=== PATIENT | female | born 1980 | race Two or more races ===

== ENCOUNTER 2024-10-06 08:18 | Inpatient (IN) | payer MEDICAID, OTHER ==
[~2024-10-06] VITALS: Ht 157.5 cm; Wt 72.7 kg
--- NOTE | 2024-10-06 09:15 | ED.PDOC ---
GI ASSESSMENT HPI Comments 44 year old female SHIKHA presents to the ED with chief complaint of abdominal pain. Patient reports that she had started to experience sharp LUQ abdominal pain during work this morning, going home early. Patient relays that her pain worsened at home and then was accompanied by associated nausea, dizziness, and blurred vision. EMS relays that the patient's BP was noted to be in the 170s systolically, despite taking Propranolol this morning. Patient notes her LMP was on 10/01. Patient denies any vomiting, diarrhea, chest pain, SOB, fever, chills, dysuria, or hematuria. Chief Complaint: Abdominal Pain Time Seen by MD: 09:10 Primary Care Provider: UNKNOWN Reviewed Notes: Nurses Notes, Taxation Consultant Notes, Medications, Allergies Allergies: Coded Allergies: NO KNOWN ALLERGIES (Unverified , 10/06/24) Information Source: Patient, Emergency Med Personnel Mode of Arrival: EMS Timing: Hours Duration: Since onset Prehospital treatment: 12 Lead EKG Quality: Cramping, Sharp Vomitus: None Stool: Normal Severity: Moderate Recent: None Recent Hx of: None Pain Location: Epigastric, LUQ Modifying Factors: Nothing Associated sign and symptoms: Nausea, Abdominal Pain Past Medical History PAST MEDICAL HISTORY: Anxiety, Gallstones, HTN Surgical History: Denies all surgeries CLIENT ACCOUNT REPRESENTATIVE History: Denies all CLIENT ACCOUNT REPRESENTATIVE Hx Family History Family History: Reviewed,noncontributory to illness Social History Smoker: Non-Smoker Alcohol: Denies ETOH Use Drugs: Denies Drug Use Lives In: Home Constitutional: denies: chills, diaphoresis, fatigue, fever, malaise, sweats, weakness, others EENTM: reports: blurred vision; denies: double vision, ear bleeding, ear discharge, ear drainage, ear pain, ear ringing, eye pain, eye redness, hearing loss, mouth pain, mouth swelling, nasal discharge, nose bleeding, nose congestion, nose pain, photophobia, tearing, throat pain, throat swelling, voice changes, others Respiratory: denies: cough, hemoptysis, orthopnea, SOB at rest, shortness of breath, SOB with excertion, stridor, wheezing, others Cardiovascular: denies: chest pain, dizzy spells, diaphoresis, Dyspnea on exertion, edema, irregular heart beat, left arm pain, lightheadedness, palp itations, PND, syncope, others Gastrointestinal: reports: abdominal pain, nausea; denies: abdomen distended, blood streaked bowels, constipated, diarrhea, dysphagia, difficulty swallowing, hematemesis, melena, poor appetite, poor fluid intake, rectal bleeding, rectal pain, vomiting, others Genitourinary: denies: abnormal vagina bleeding, burning, dyspareunia, dysuria, flank pain, frequency, hematuria, incontinence, pain, , vagina discharge, urgency, others Neurological: reports: dizziness; denies: fainting, headache, left sided numbness, left sided weakness, numbness, paresthesia, pre-existing deficit, right sided numbness, right sided weakness, seizure, speech problems, tingling, tremors, weakness, others Musculoskeletal: denies: back pain, gout, joint pain, joint swelling, muscle pain, muscle stiffness, neck pain, others Integumetry: denies: bruises, change in color, change in hair/nails, dryness, laceration, lesions, lumps, rash, wounds, others Allergic/Immunocompromised: denies: Difficulty Healing, Frequent Infections, Hives, Itching, others Hematologic/Lymphatic: denies: anemia, blood clots, easy bleeding, easy bruising, swollen glands, others Endocrine: denies: excessive hunger, excessive sweating, excessive thirst, excessive urination, flushing, intolerance to cold, intolerance to heat, unexplained weight gain, unexplained weight loss, others Psychiatric: denies: anxiety, bipolar disorder, depression, hopeless, panic disorder, schizophrenia, sleepless, suicidal, others All Other Systems: Reviewed and Negative Physical Exam General Appearance: No Apparent Distress, Normal HEENT: Normal ENT Inspection, Pharynx Normal, TMs Normal Neck: Full Range of Motion, Non-Tender, Normal, Normal Inspection Respiratory: Chest Non-Tender, Lungs Clear, No Accessory Muscle Use, No Respiratory Distress, Normal Breath Sounds Cardiovascular: No Edema, No JVD, No Murmur, No Gallop, Normal Peripheral Pulses, Regular Rate/Rhythm Breast Exam: Deferred Gastrointestinal: No Organomegaly, No Pulsatile Mass, Normal Bowel Sounds, Soft, Tenderness (Epigastric/LUQ tenderness to palpation) Genitalia: Deferred Pelvic: Deferred Rectal: Deferred Extremities: No calf tenderness, Normal capillary refill, Normal inspection, Normal range of motion, Non-tender, No pedal edema Musculoskeletal : Apperance: Normal Neurologic: Alert, 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 Was a procedure done?: No GI differential Dx Differential Diagnosis: Cholecystitis, Gastritis/PUD, Gastroenteritis, Pancreatitis, Dehydration, Electrolyte Imbalance, Food Poisoning, Bacterial, Viral X-Ray, Labs, Meds, VS Vital Signs Date Time Temp Pulse Resp B/P (MAP) Pulse Ox O2 Delivery O2 Flow Rate FiO2 10/06/24 13:49 47 17 159/79 10/06/24 13:45 98.0 47 17 159/79 (105) 94 98.0 10/06/24 12:47 46 16 177/75 10/06/24 09:20 97.6 46 16 165/81 (109) 97 97.6 10/06/24 09:20 46 16 97 Room Air* 0 21 10/06/24 09:15 50 10/06/24 08:30 50 10/06/24 08:29 97.7 50 15 177/78 (111) 95 97.7 Lab Test 10/06/24 09:56 10/06/24 09:22 Range/Units White Blood Count 9.7 4.4-10.8 10^3/uL Red Blood Count 4.75 4.0-5.20 10^6/uL Hemoglobin 11.3 L 12.2-16.2 g/dL Hematocrit 35.5 L 36.0-46.0 % Mean Corpuscular Volume 74.7 L 80.0-100.0 fL Mean Corpuscular Hemoglobin 23.7 L 28.0-32.0 pg Mean Corpuscular Hemoglobin Concent 31.8 L 32.0-36.0 g/dL Red Cell Distribution Width 18.7 H 11.8-14.3 % Platelet Count 549 H 140-450 10^3/uL Mean Platelet Volume 7.5 6.9-10.8 fL Neutrophils (%) (Auto) 70.1 37.0-80.0 % Lymphocytes (%) (Auto) 20.7 10.0-50.0 % Monocytes (%) (Auto) 5.2 0.0-12.0 % Eosinophils (%) (Auto) 3.0 0.0-7.0 % Basophils (%) (Auto) 1.0 0.0-2.0 % Neutrophils # (Auto) 6.8 1.6-8.6 10 ^3/uL Lymphocytes # (Auto) 2.0 0.4-5.4 10 ^3/uL Monocytes # (Auto) 0.5 0-1.3 10 ^3/uL Eosinophils # (Auto) 0.3 0-0.8 10 ^3/uL Basophils # (Auto) 0.1 0-0.2 10 ^3/uL Nucleated Red Blood Cells 0.1 % Sodium Level 139 136-145 mmol/L Potassium Level 4.0 3.5-5.1 mmol/L Chloride Level 103 98-107 mmol/L Carbon Dioxide Level 26 20-31 mmol/L Anion Gap 10 5-15 Blood Urea Nitrogen 8 L 9-23 mg/dL Creatinine 0.63 0.550-1.02 mg/dL Glomerular Filtration Rate Calc 111 >90 mL/min BUN/Creatinine Ratio 12.7 10.0-20.0 Serum Glucose 103 74-106 mg/dL Calcium Level 10.2 8.7-10.4 mg/dL Total Bilirubin 0.4 0.2-1.0 mg/dL Aspartate Amino Transferase (AST) 13 13-40 U/L Alanine Aminotransferase (ALT) < 9 7-40 U/L Alkaline Phosphatase 48 46-116 U/L Total Protein 7.9 5.7-8.2 g/dL Albumin 4.9 H 3.2-4.8 g/dL Lipase 50 12-53 U/L Thyroid Stimulating Hormone (TSH) 1.51 0.55-4.78 uIU/mL Urine Color Colorless Yellow Urine Clarity Clear Clear Urine pH 6.5 5.0-9.0 Urine Specific [place] 1.005 1.001-1.035 Urine Protein Negative Negative Urine Ketones Negative Negative Urine Blood Negative Negative /uL Urine Nitrite Negative Negative Urine Bilirubin Negative Negative Urine Urobilinogen Normal Negative mg/dL Urine Leukocyte Esterase Negative Negative /uL Urine RBC <1 0 - 4 /hpf Urine Microscopic WBC < 1 0-5 /HPF Urine Squamous Epithelial Cells Few <5 /hpf Urine Bacteria None seen None Seen /hpf Urine Glucose Normal Normal mg/dL Urine Test Negative Negative Current Medications Medications (Trade) Dose Ordered Sig/Aleena Route Start Time Stop Time Status Last Admin Al Hydrox/Mg Hydrox/Simethicone (Maalox Plus) 30 ml ONCE ONCE PO 10/06/24 09:45 10/06/24 09:46 DC 10/06/24 10:09 Belladonna Alkaloids/ Phenobarbital ( Elixir) 5 ml ONCE ONCE PO 10/06/24 09:45 10/06/24 09:46 DC 10/06/24 10:10 Lidocaine HCl (Xylocaine 2% Viscous) 10 ml ONCE ONCE PO 10/06/24 09:45 10/06/24 09:46 DC 10/06/24 10:10 Ondansetron HCl (Zofran) 4 mg ONCE ONCE IV 10/06/24 12:00 10/06/24 12:01 DC 10/06/24 12:46 Hydromorphone HCl (Dilaudid Injection) 1 mg ONCE ONCE IV 10/06/24 12:45 10/06/24 12:46 DC 10/06/24 12:47 44-year-old female presents mid abdomen and upper quadrants. Patient was given a GI cocktail without improvement. CT abdomen and pelvis was ordered which does demonstrate a small bowel obstruction. Also evidence of cholelithiasis patient has been given Dilaudid and Zofran in ER as well as IV fluids. At this time hospitalist team has been consulted for admission. cbc and cmp have been done which are within normal limits Time of 1ST Reevaluation: 10:10 Reevaluation 1ST: Improved Patient Education/Counseling: Diagnosis, Treatment Family Education/Counseling: No Family Present Departure 1 Departure Time of Disposition: 12:00 Impression: Primary Impression: Small bowel obstruction Additional Impressions: Cholelithiasis Qualified Codes: K80.20 - Calculus of gallbladder without cholecystitis without obstruction Adnexal cyst Disposition: HOME / SELF CARE / HOMELESS Condition: Guarded Discharged With: Self Critical Care Note Critical Care Time?: No Stability Stability form required: No Heart Score Heart Score: Heart Score Response (Comments) Value History N/A 0 EKG N/A 0 Age N/A 0 Risk Factors N/A 0 Troponin N/A 0 Total 0 I personally scribed for PATIENCE ELLIOTT MD ([email or web address]) on 10/06/24 at 09:15. Electronically submitted by Damon Donaldson ([email or web address]). I personally scribed for PATIENCE ELLIOTT MD ([email or web address]) on 10/06/24 at 11:46. Electronically submitted by Damon Donaldson ([email or web address]). PATIENCE ELLIOTT MD Oct 06, 2024 09:15
[2024-10-06 09:20] VITALS: PULSE 46; RESP 16; O2SAT 97
[2024-10-06 09:54] LABS: Urine Bacteria None Seen /hpf (None Seen)
[2024-10-06 09:58] LABS: Urine Blood Negative /uL (Negative); Urine Clarity Clear (Clear); Urine Color Colorless (Yellow); Urine Protein, UAD Negative (Negative); Urine Specific Gravity 1.005 (1.001-1.035); Urine Squamous Epithelial Cell FEW /hpf (<5); Urine Urobilinogen Normal (Negative); Urine WBC < 1 /HPF (0-5); Urine pH 6.5 (5.0-9.0)
[2024-10-06 10:05] LABS: Basophils # (auto) 0.1 10 ^3/uL (0-0.2); Eosinophils # (auto) 0.3 10 ^3/uL (0-0.8); Hematocrit 35.5 % (36.0-46.0); Hemoglobin 11.3 g/dL (12.2-16.2); Lymphocytes % (auto) 20.7 % (10.0-50.0); Mean Corpuscular Hemoglobin 23.7 pg (28.0-32.0); Mean Corpuscular Hgb Conc. 31.8 g/dL (32.0-36.0); Mean Corpuscular Volume 74.7 fL (80.0-100.0); Monocytes # (auto) 0.5 10 ^3/uL (0-1.3); Monocytes % (auto) 5.2 % (0.0-12.0); Neutrophils # (auto) 6.8 10 ^3/uL (1.6-8.6); Neutrophils % (auto) 70.1 % (37.0-80.0); Nucleated Red Blood Cells % 0.1 %; Platelet Count (auto) 549 10^3/uL (140-450); Red Blood Cells 4.75 10^6/uL (4.0-5.20); Red Cell Distribution Width 18.7 % (11.8-14.3); White Blood Cell 9.7 10^3/uL (4.4-10.8)
[2024-10-06] MEDS: MAALOX PLUS or MAALOX 30 ML PO ONE (10:09)
[2024-10-06] MEDS: DONNATAL 5ml ORAL Elix (BELLADONNA ALK-PHENOBARB) PO ONE (10:10)
[2024-10-06] MEDS: LIDOCAINE VISCOUS 2% 15ML UD PO ONE (10:10)
[2024-10-06 10:18] LABS: Alkaline Phosphatase 48 U/L (46-116); Anion Gap 10 (5-15); Aspartate Aminotransferase 13 U/L (13-40); BUN/Creatinine Ratio 12.7 (10.0-20.0); Bilirubin, Total 0.4 mg/dL (0.2-1.0); Calcium 10.2 mg/dL (8.7-10.4); Carbon Dioxide 26 mmol/L (20-31); Chloride 103 mmol/L (98-107); Glucose 103 mg/dL (74-106); Sodium 139 mmol/L (136-145); Total Protein 7.9 g/dL (5.7-8.2)
[2024-10-06 10:20] LABS: Alanine Aminotransferase < 9 U/L (7-40); Albumin 4.9 g/dL (3.2-4.8); Blood Urea Nitrogen 8 mg/dL (9-23)
--- NOTE | 2024-10-06 11:07 | DVH ---
CLINICAL INFORMATION: Abdominal pain. TECHNIQUE: Axial CT images of the abdomen and pelvis were obtained without IV contrast. Coronal and s agittal reformatted images were obtained, reviewed, and stored. Evaluation of the parenchymal organs is limited without IV contrast. Evaluation of the bowel and mesentery is limited without oral contras t. All CT scans at this medical facility are performed using dose modulation techniques as appropriat e to a performed exam including the following: Automated exposure control was utilized; adjustment of the MA and/or KV according to patient size; and use of iterative reconstruction technique. CTDIvol = 10.52 mGy DLP = 541.26 mGy-cm COMPARISON: None FINDINGS: Lung bases: Lung bases are clear. Liver: Grossly unremarkable in its noncontrast enhanced appearance. No abnormal density or focal lesi on identified. Biliary: Numerous small calcified gallstones in the gallbladder. Spleen: Unremarkable. Pancreas: Grossly unremarkable in its noncontrast enhanced appearance. Adrenal glands: Unremarkable. No mass. Kidneys: No hydronephrosis. No renal or ureteral calculi. Aorta/Vascular: Moderate atherosclerotic calcification. No abdominal aortic aneurysm. Retroperitoneum: No mass or lymphadenopathy. Bowel/mesentery: Dilated fluid-filled proximal to mid small bowel loops with nondilated distal small bowel loops suggesting small bowel obstruction suspected transition point in the right hemiabdomen. A ppendix is visualized and appears unremarkable. Underdistended colon due to the small bowel obstruct ion. Pelvic organs: Uterus is anteverted. Tubal occlusion devices are seen in the uterus. There is a cysti c structure in the right adnexal region measuring up to 3.8 cm, likely ovarian cyst. Cystic structure in the left adnexa measures up to 1.9 cm, likely ovarian cyst. Partially visualized metallic density at the vagina. Bladder: Unremarkable. No mass. Abdominal wall: No mass or hernia. Bones: No acute fracture or suspicious intraosseous lesion. IMPRESSION: 1. Findings consistent with small-bowel obstruction as described above. 2. Bilateral adnexal cysts, likely ovarian cysts. Correlate with clinical findings. If clinically ind icated, pelvic ultrasound could be obtained. 3. Cholelithiasis. 4. Additional findings as detailed above.
[2024-10-06] MEDS ORDERED: HYDROMORPHONE HCL 1 MG/ML INJ IV ONE ×2 (12:00→12:30)
[2024-10-06 12:20] LABS: Lipase 50 U/L (12-53)
[2024-10-06] MEDS: ONDANSETRON HCL 4 MG/2 ML VIAL IV ONE (12:46)
[2024-10-06] MEDS: HYDROmorphone HCL 2 MG/ML VL/or syr IV ONE (12:47)
[2024-10-06] MEDS ORDERED: ACETAMINOPHEN 325 MG TAB PO PRN (14:30)
[2024-10-06] MEDS: SODIUM CHLORIDE 0.9% 1,000 ML IV SCH (15:13)
--- NOTE | 2024-10-06 15:50 | DVHHP2 ---
History of Present Illness Reason for Visit: Abdominal pain since morning History of Present Illness 44-year-old female with a known history of anxiety disorder, hypertension, previous history of breast reduction surgery, tubal ligation initially presented to the hospital with abdominal pain found to have partial small-bowel obstruction. Patient also complained of nausea but denies any vomiting. Patient denies any diarrhea. Patient denies any fevers chills denies any previous episode of similar kind. Cardiovascular: HTN Psych: Anxiety Past Surgical History: Other (Breast reduction surgery.), Tubal Ligation Smoke: No ALCOHOL: none Review of Systems Review of Systems Twelve review of system are negative besides mentioned above. Allergies: Coded Allergies: NO KNOWN ALLERGIES (Unverified , 10/06/24) Medications Current Medications Medications Dose Ordered Sig/Aleena Route Start Time Stop Time Status Last Admin Dose Admin Sodium Chloride 1,000 ml @ 120 mls/hr Q8H20M IV 10/06/24 14:30 10/06/24 15:13 120 MLS/HR Acetaminophen/ Hydrocodone Bitart 1 tab Q4HP PRN PO 10/06/24 14:30 Ondansetron HCl 4 mg Q4HP PRN IV 10/06/24 14:30 Acetaminophen 650 mg Q6HP PRN PO 10/06/24 14:30 Morphine Sulfate 2 mg Q4HPRN PRN IV 10/06/24 14:30 Exam Vital Signs Vital Signs Date Time Temp Pulse Resp B/P (MAP) Pulse Ox O2 Delivery O2 Flow Rate FiO2 10/06/24 13:49 47 17 159/79 10/06/24 13:45 98.0 94 98.0 10/06/24 09:20 Room Air* 0 21 Exam HEENT pupils are reactive Neck is supple CV is S1-S2 regular rate and rhythm Respiratory are clear GI positive bowel sounds soft nondistended nontender no guarding no rigidity Extremity no edema 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 Labs/Xrays Labs Test 10/06/24 09:56 10/06/24 09:22 Range/Units White Blood Count 9.7 4.4-10.8 10^3/uL Red Blood Count 4.75 4.0-5.20 10^6/uL Hemoglobin 11.3 L 12.2-16.2 g/dL Hematocrit 35.5 L 36.0-46.0 % Mean Corpuscular Volume 74.7 L 80.0-100.0 fL Mean Corpuscular Hemoglobin 23.7 L 28.0-32.0 pg Mean Corpuscular Hemoglobin Concent 31.8 L 32.0-36.0 g/dL Red Cell Distribution Width 18.7 H 11.8-14.3 % Platelet Count 549 H 140-450 10^3/uL Mean Platelet Volume 7.5 6.9-10.8 fL Neutrophils (%) (Auto) 70.1 37.0-80.0 % Lymphocytes (%) (Auto) 20.7 10.0-50.0 % Monocytes (%) (Auto) 5.2 0.0-12.0 % Eosinophils (%) (Auto) 3.0 0.0-7.0 % Basophils (%) (Auto) 1.0 0.0-2.0 % Neutrophils # (Auto) 6.8 1.6-8.6 10 ^3/uL Lymphocytes # (Auto) 2.0 0.4-5.4 10 ^3/uL Monocytes # (Auto) 0.5 0-1.3 10 ^3/uL Eosinophils # (Auto) 0.3 0-0.8 10 ^3/uL Basophils # (Auto) 0.1 0-0.2 10 ^3/uL Nucleated Red Blood Cells 0.1 % Sodium Level 139 136-145 mmol/L Potassium Level 4.0 3.5-5.1 mmol/L Chloride Level 103 98-107 mmol/L Carbon Dioxide Level 26 20-31 mmol/L Anion Gap 10 5-15 Blood Urea Nitrogen 8 L 9-23 mg/dL Creatinine 0.63 0.550-1.02 mg/dL Glomerular Filtration Rate Calc 111 >90 mL/min BUN/Creatinine Ratio 12.7 10.0-20.0 Serum Glucose 103 74-106 mg/dL Calcium Level 10.2 8.7-10.4 mg/dL Total Bilirubin 0.4 0.2-1.0 mg/dL Aspartate Amino Transferase (AST) 13 13-40 U/L Alanine Aminotransferase (ALT) < 9 7-40 U/L Alkaline Phosphatase 48 46-116 U/L Total Protein 7.9 5.7-8.2 g/dL Albumin 4.9 H 3.2-4.8 g/dL Lipase 50 12-53 U/L Urine Color Colorless Yellow Urine Clarity Clear Clear Urine pH 6.5 5.0-9.0 Urine Specific [place] 1.005 1.001-1.035 Urine Protein Negative Negative Urine Ketones Negative Negative Urine Blood Negative Negative /uL Urine Nitrite Negative Negative Urine Bilirubin Negative Negative Urine Urobilinogen Normal Negative mg/dL Urine Leukocyte Esterase Negative Negative /uL Urine RBC <1 0 - 4 /hpf Urine Microscopic WBC < 1 0-5 /HPF Urine Squamous Epithelial Cells Few <5 /hpf Urine Bacteria None seen None Seen /hpf Urine Glucose Normal Normal mg/dL Urine Test Negative Negative Assessment/Plan Assessment/Plan 44-year-old female with a known history of anxiety disorder, hypertension initially presented to the hospital with the abdominal pain found to have 1. Abdominal pain with the nausea suspect partial small-bowel obstruction 2. Partial small-bowel obstruction 3. Hypertension Four anxiety disorder -check TSH, keep NPO, empirical IV fluids IV antibiotics, surgical consultation. Plan discussed with: Patient My Orders Orders - PERLA HI MD Procedure Category Date Status Time Admit ADMIT 10/06/24 Transmitted 14:19 Code Status CODE 10/06/24 Transmitted 14:19 Sodium Chloride 0.9% PHA 10/06/24 In Process 14:30 Hydrocodone-Acet PHA 10/06/24 In Process 5/325mg Tab ([place] 14:30 Ondansetron Hcl PHA 10/06/24 In Process (Zofran) 14:30 Npo (Nothing By DIET 10/06/24 Transmitted Mouth) Diet Dinner Condition: Stable ARTEMIO 10/06/24 In Process 14:19 Acetaminophen Tablet PHA 10/06/24 In Process (Tylenol Tablet) 14:30 Morphine Sulfate PHA 10/06/24 In Process Injection 14:30 * Surgical Consult CONS 10/06/24 Transmitted Date of Service: Oct 06, 2024 Billing Provider: PERLA HI MD Common Visit Codes: NOT BILLABLE PERLA HI MD Oct 06, 2024 15:50
[2024-10-06 16:14] VITALS: BP 184/80; PULSE 43; RESP 17; TEMP 97.9; O2SAT 100
--- NOTE | 2024-10-06 18:15 | ECG ---
[facility] Test Date: 2024-10-06 Test Time: 08:30:36 Pat Name: YESENIA MELENDEZ Department: ED Room: 024[facility] Gender: F Object Oriented Programmer: arvind : 1980 Requested By: PATIENCE ELLIOTT Order Number: [id number] Reading MD: Rene Blood Measurements Intervals [place] Rate: 50 P: 30 MD: 158 QRS: 76 QRSD: 94 T: 63 QT: 506 QTc: 462 Interpretive Statements Sinus rhythm Electronically Signed On 10-08-2024 20:27:29 PDT by Rene Blood Please click the below link to view image of tracing.
--- NOTE | 2024-10-06 18:25 | DVHINCON2 ---
Date of service: Oct 06, 2024 Allergies: Coded Allergies: NO KNOWN ALLERGIES (Unverified , 10/06/24) Current Medications Current Medications Medications (Trade) Dose Ordered Sig/Aleena Route PRN Reason Start Time Stop Time Status Last Admin Sodium Chloride 1,000 ml @ 120 mls/hr Q8H20M IV 10/06/24 14:30 10/06/24 15:13 Acetaminophen/ Hydrocodone Bitart ([place] 5/325MG Tab) 1 tab Q4HP PRN PO MODERATE PAIN (4-6 PAIN SCALE) 10/06/24 14:30 Ondansetron HCl (Zofran) 4 mg Q4HP PRN IV NAUSEA / VOMITING 10/06/24 14:30 Acetaminophen (Tylenol Tablet) 650 mg Q6HP PRN PO PAIN SCALE 1-3 OR TEMP>100.4 10/06/24 14:30 Morphine Sulfate 2 mg Q4HPRN PRN IV SEVERE PAIN (7-10 PAIN SCALE) 10/06/24 14:30 Vital Signs Vital Signs Date Time Temp Pulse Resp B/P (MAP) Pulse Ox O2 Delivery O2 Flow Rate FiO2 10/06/24 16:29 Room Air* 0 21 10/06/24 16:14 97.9 43 17 184/80 (114) 100 97.9 Labs/Diagnostic Data Labs Test 10/06/24 09:56 10/06/24 09:22 Range/Units White Blood Count 9.7 4.4-10.8 10^3/uL Red Blood Count 4.75 4.0-5.20 10^6/uL Hemoglobin 11.3 L 12.2-16.2 g/dL Hematocrit 35.5 L 36.0-46.0 % Mean Corpuscular Volume 74.7 L 80.0-100.0 fL Mean Corpuscular Hemoglobin 23.7 L 28.0-32.0 pg Mean Corpuscular Hemoglobin Concent 31.8 L 32.0-36.0 g/dL Red Cell Distribution Width 18.7 H 11.8-14.3 % Platelet Count 549 H 140-450 10^3/uL Mean Platelet Volume 7.5 6.9-10.8 fL Neutrophils (%) (Auto) 70.1 37.0-80.0 % Lymphocytes (%) (Auto) 20.7 10.0-50.0 % Monocytes (%) (Auto) 5.2 0.0-12.0 % Eosinophils (%) (Auto) 3.0 0.0-7.0 % Basophils (%) (Auto) 1.0 0.0-2.0 % Neutrophils # (Auto) 6.8 1.6-8.6 10 ^3/uL Lymphocytes # (Auto) 2.0 0.4-5.4 10 ^3/uL Monocytes # (Auto) 0.5 0-1.3 10 ^3/uL Eosinophils # (Auto) 0.3 0-0.8 10 ^3/uL Basophils # (Auto) 0.1 0-0.2 10 ^3/uL Nucleated Red Blood Cells 0.1 % Sodium Level 139 136-145 mmol/L Potassium Level 4.0 3.5-5.1 mmol/L Chloride Level 103 98-107 mmol/L Carbon Dioxide Level 26 20-31 mmol/L Anion Gap 10 5-15 Blood Urea Nitrogen 8 L 9-23 mg/dL Creatinine 0.63 0.550-1.02 mg/dL Glomerular Filtration Rate Calc 111 >90 mL/min BUN/Creatinine Ratio 12.7 10.0-20.0 Serum Glucose 103 74-106 mg/dL Calcium Level 10.2 8.7-10.4 mg/dL Total Bilirubin 0.4 0.2-1.0 mg/dL Aspartate Amino Transferase (AST) 13 13-40 U/L Alanine Aminotransferase (ALT) < 9 7-40 U/L Alkaline Phosphatase 48 46-116 U/L Total Protein 7.9 5.7-8.2 g/dL Albumin 4.9 H 3.2-4.8 g/dL Lipase 50 12-53 U/L Thyroid Stimulating Hormone (TSH) 1.51 0.55-4.78 uIU/mL Urine Color Colorless Yellow Urine Clarity Clear Clear Urine pH 6.5 5.0-9.0 Urine Specific [place] 1.005 1.001-1.035 Urine Protein Negative Negative Urine Ketones Negative Negative Urine Blood Negative Negative /uL Urine Nitrite Negative Negative Urine Bilirubin Negative Negative Urine Urobilinogen Normal Negative mg/dL Urine Leukocyte Esterase Negative Negative /uL Urine RBC <1 0 - 4 /hpf Urine Microscopic WBC < 1 0-5 /HPF Urine Squamous Epithelial Cells Few <5 /hpf Urine Bacteria None seen None Seen /hpf Urine Glucose Normal Normal mg/dL Urine Test Negative Negative Assessment [id number] AFEBRILE VSS ABD SOFT NON TENDER NO REBOUND BM + NO FLATUS R/O PARTIAL SBO ILEUS MANAGE CONSERVATIVELY KEEP NPO, NG TO LCS NURSE AT BEDSIDE Plan discussed with: Patient JEF REGAN MD Oct 06, 2024 18:25
[2024-10-06 19:17] VITALS: BP 158/84; PULSE 51; RESP 16; TEMP 98.2; O2SAT 99
[2024-10-06] MEDS: MORPHINE SULFATE INJ 2 MG/ml SYRG IV PRN (19:57)
[2024-10-06] MEDS: ONDANSETRON HCL 4 MG/2 ML VIAL IV PRN (19:57)
[2024-10-06 20:00] VITALS: PULSE 51; RESP 19; O2SAT 99
[2024-10-06 21:12] VITALS: BP 186/88; PULSE 52; RESP 19; TEMP 97.6; O2SAT 99
[2024-10-07] VITALS (7 sets, daily range): BP systolic 147–180; BP diastolic 74–91; PULSE 52–74; RESP 17–20; TEMP 97.8–98.5; O2SAT 98–100
--- NOTE | 2024-10-07 01:31 | DVHINCON2 ---
DATE OF CONSULTATION: 10/06/2024 HISTORY OF PRESENT ILLNESS: This patient is 44-year-old coming in with abdominal pain and some nausea, but no vomiting. She has had no bowel activity, but this morning she had a bowel movement. No history of flatus. No hematuria, melena. No bleeding per rectum. PAST MEDICAL HISTORY: Hypertension. PAST SURGICAL HISTORY: Breast reduction surgery and tubal ligation. PHYSICAL EXAMINATION: VITAL SIGNS: Afebrile, stable vital signs. GENERAL: No evidence of pallor, cyanosis, or jaundice. NECK: Supple, nontender with no thyromegaly, lymphadenopathy. CHEST AND LUNGS: Clear. HEART: Within normal limits. ABDOMEN: Soft, minimally tender. No rebound. EXTREMITIES: Unremarkable. NEUROLOGIC: Intact. CLINICAL IMPRESSION: Rule out small bowel obstruction, possibly resolving, and possible resolving ileus at this point. PLAN: Needs conservative management. Close observation. NG-tube. To look at the infection. N.p.o. Consider urgent surgery based upon ongoing evaluation. MD AXEL Escamilla/RANDOLPH TID: [id number] RECEIPT: [id number] cc: Juvenal Abdi MD
[2024-10-07] MEDS: hydrALAZINE HCL 20 MG/ML VL IV PRN (12:10)
--- NOTE | 2024-10-07 14:00 | DVHPN2 ---
Subjective Patient has a NG tube placed last night but she pulled it out and now she has been refusing. Has not been passing flatus and complaining of abdominal pain associated with the nausea. General surgery has recommending small-bowel series with Gastrografin which was ordered. 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 Medications Current Medications Medications Dose Ordered Sig/Aleena Route Start Time Stop Time Status Last Admin Dose Admin Sodium Chloride 1,000 ml @ 120 mls/hr Q8H20M IV 10/06/24 14:30 10/07/24 10:27 120 MLS/HR Acetaminophen/ Hydrocodone Bitart 1 tab Q4HP PRN PO 10/06/24 14:30 Ondansetron HCl 4 mg Q4HP PRN IV 10/06/24 14:30 10/07/24 10:19 4 MG Acetaminophen 650 mg Q6HP PRN PO 10/06/24 14:30 Morphine Sulfate 2 mg Q4HPRN PRN IV 10/06/24 14:30 10/07/24 10:20 2 MG Hydralazine HCl 10 mg Q4HPRN PRN IV 10/06/24 21:00 10/07/24 12:10 10 MG Laboratory Results Laboratory Tests 10/06/24 09:56 Urinalysis Test 10/06/24 09:22 Urine Color Colorless (Yellow) Urine Clarity Clear (Clear) Urine pH 6.5 (5.0-9.0) Urine Specific [place] 1.005 (1.001-1.035) Urine Protein Negative (Negative) Urine Ketones Negative (Negative) Urine Blood Negative /uL (Negative) Urine Nitrite Negative (Negative) Urine Bilirubin Negative (Negative) Urine Urobilinogen Normal mg/dL (Negative) Urine Leukocyte Esterase Negative /uL (Negative) Urine RBC <1 /hpf (0 - 4) Urine Microscopic WBC < 1 /HPF (0-5) Urine Squamous Epithelial Cells Few /hpf (<5) Urine Bacteria None seen /hpf (None Seen) Urine Glucose Normal mg/dL (Normal) Urine Test Negative (Negative) Assessment/Plan Assessment/Plan 44-year-old female with a known history of anxiety disorder, hypertension initially presented to the hospital with the abdominal pain found to have 1. Abdominal pain with the nausea suspect partial small-bowel obstruction 2. Partial small-bowel obstruction 3. Hypertension 4. Anxiety disorder - keep NPO, IV fluids IV antibiotics, upper GI small bowel series with Gastrografin. Plan discussed with: Patient, Other My Orders Orders - PERLA HI MD Procedure Category Date Status Time Admit ADMIT 10/06/24 Transmitted 14:19 Code Status CODE 10/06/24 Transmitted 14:19 Sodium Chloride 0.9% PHA 10/06/24 In Process 14:30 Hydrocodone-Acet PHA 10/06/24 In Process 5/325mg Tab ([place] 14:30 Ondansetron Hcl PHA 10/06/24 In Process (Zofran) 14:30 Npo (Nothing By DIET 10/06/24 Transmitted Mouth) Diet Dinner Condition: Stable ARTEMIO 10/06/24 In Process 14:19 Acetaminophen Tablet PHA 10/06/24 In Process (Tylenol Tablet) 14:30 Morphine Sulfate PHA 10/06/24 In Process Injection 14:30 * Surgical Consult CONS 10/06/24 Transmitted Small Bowel Series-W XY 10/07/24 Logged Gastrogra 13:35 Date of Service: Oct 07, 2024 Billing Provider: PERLA HI MD Common Visit Codes: NOT BILLABLE PERLA HI MD Oct 07, 2024 14:00
[2024-10-07] MEDS ORDERED: GASTROGRAFIN 120 ML SOL ONE (14:03)
--- NOTE | 2024-10-07 18:41 | DVHPN2 ---
Progress Note Date Seen: Oct 07, 2024 Medical Necessity Reason Pt with a Central, PICC or Fol: No Objective vital signs Vital Sign Date Time Temp Pulse Resp B/P (MAP) Pulse Ox O2 Delivery O2 Flow Rate FiO2 10/07/24 12:10 180/91 10/07/24 10:50 52 20 10/07/24 08:00 Room Air* 0 21 10/07/24 05:36 98.5 98 98.5 Total Intake and Output 10/06/24 10/06/24 10/07/24 15:00 23:00 07:00 Intake Total 0 ml 150 ml Balance 0 ml 150 ml medications Current Medications Medications Dose Ordered Sig/Aleena Route Start Time Stop Time Status Last Admin Dose Admin Sodium Chloride 1,000 ml @ 120 mls/hr Q8H20M IV 10/06/24 14:30 10/07/24 10:27 120 MLS/HR Acetaminophen/ Hydrocodone Bitart 1 tab Q4HP PRN PO 10/06/24 14:30 Ondansetron HCl 4 mg Q4HP PRN IV 10/06/24 14:30 10/07/24 10:19 4 MG Acetaminophen 650 mg Q6HP PRN PO 10/06/24 14:30 Morphine Sulfate 2 mg Q4HPRN PRN IV 10/06/24 14:30 10/07/24 10:20 2 MG Hydralazine HCl 10 mg Q4HPRN PRN IV 10/06/24 21:00 10/07/24 12:10 10 MG laboratory and microbiology Laboratory Tests 10/06/24 09:56 Test 10/06/24 09:56 Range/Units Serum Glucose 103 74-106 mg/dL Problem List/Assessment/Plan Problem List/Assessment/Plan AFEBRILE VSS ABD SOFT NON TENDER BM + FLATUS + RESOLVING SBO ALLOW CLEAR LIQUIDS Plan discussed with: Patient My Orders My Orders Orders - JEF REGAN MD Procedure Category Date Status Time Ng To Lcs ARTEMIO 10/06/24 In Process 18:52 Place Ng ORDERS 10/06/24 Transmitted 18:52 Clear Liq Diet DIET 10/07/24 Transmitted Dinner JEF RGEAN MD Oct 07, 2024 18:41
--- NOTE | 2024-10-07 19:03 | DVH ---
XY SMALL BOWEL SERIES-W GASTROGRA 10/07/2024 02:23 PM Clinical History: SBO Comparison Study: None available at time of dictation. Technique: Single contrast small bowel series performed. Findings: Initial special education paraeducator view of the abdomen and pelvis appears demonstrates no acute process. Contrast is identified within the colon by 2 hours. This represents a normal small bowel transit sergio e. Small bowel loops are normal in size. Normal mucosal pattern. No evidence of small bowel obstructi on, stricture, or mucosal abnormality. IMPRESSION: 1. Normal small bowel series.
[2024-10-08] MEDS: HYDROcodone-ACET 5/325MG TAB PO PRN (00:47)
[2024-10-08 01:00] VITALS: BP 174/83; PULSE 68; RESP 19; TEMP 98.4; O2SAT 97
[2024-10-08 05:00] VITALS: BP 155/78; PULSE 65; RESP 19; TEMP 98.5; O2SAT 98
[2024-10-08 07:07] LABS: Chloride 105 mmol/L (98-107); Potassium 4.1 mmol/L (3.5-5.1); Sodium 137 mmol/L (136-145)
[2024-10-08 07:08] LABS: Anion Gap 7 (5-15); Calcium 9.5 mg/dL (8.7-10.4); Carbon Dioxide 25 mmol/L (20-31)
[2024-10-08 07:13] LABS: BUN/Creatinine Ratio 14.5 (10.0-20.0); Blood Urea Nitrogen 11 mg/dL (9-23); Glucose 85 mg/dL (74-106)
[2024-10-08 07:15] LABS: Phosphorus 3.6 mg/dL (2.4-5.1)
[2024-10-08] MEDS ORDERED: ARIP10TA29 PO (07:31)
[2024-10-08] MEDS ORDERED: PROP1TAB53 PO (07:31)
[2024-10-08] MEDS ORDERED: QUET50TA27 PO (07:31)
[2024-10-08] MEDS ORDERED: ZOLP10TA6 PO (07:31)
[2024-10-08] MEDS ORDERED: PRAZ1CAP2 PO (07:31)
[2024-10-08] MEDS ORDERED: PRAZ2CAP2 PO (07:31)
[2024-10-08] MEDS ORDERED: FLUO60TA PO (07:31)
[2024-10-08 09:18] VITALS: BP 150/76; PULSE 67; RESP 16; TEMP 98.5; O2SAT 97
--- NOTE | 2024-10-08 12:16 | DVHPN2 ---
Progress Note Date Seen: Oct 08, 2024 Medical Necessity Reason Pt with a Central, PICC or Fol: No Objective vital signs Vital Sign Date Time Temp Pulse Resp B/P (MAP) Pulse Ox O2 Delivery O2 Flow Rate FiO2 10/08/24 10:07 67 16 150/76 10/08/24 09:18 98.5 97 98.5 10/08/24 08:00 Room Air* 0 21 Total Intake and Output 10/07/24 10/07/24 10/08/24 15:00 23:00 07:00 Intake Total 600 ml 700 ml Balance 600 ml 700 ml medications Current Medications Medications Dose Ordered Sig/Aleena Route Start Time Stop Time Status Last Admin Dose Admin Sodium Chloride 1,000 ml @ 120 mls/hr Q8H20M IV 10/06/24 14:30 10/07/24 10:27 120 MLS/HR Acetaminophen/ Hydrocodone Bitart 1 tab Q4HP PRN PO 10/06/24 14:30 10/08/24 00:47 1 TAB Ondansetron HCl 4 mg Q4HP PRN IV 10/06/24 14:30 10/08/24 03:59 4 MG Acetaminophen 650 mg Q6HP PRN PO 10/06/24 14:30 Morphine Sulfate 2 mg Q4HPRN PRN IV 10/06/24 14:30 10/08/24 10:07 2 MG Hydralazine HCl 10 mg Q4HPRN PRN IV 10/06/24 21:00 10/07/24 12:10 10 MG laboratory and microbiology Laboratory Tests 10/08/24 06:09 10/06/24 09:56 Test 10/08/24 06:09 Range/Units Serum Glucose 85 74-106 mg/dL Problem List/Assessment/Plan Problem List/Assessment/Plan AFEBRILE VSS ABD SOFT NON TENDER BM + FLATUS + RESOLVING SBO ADVANCE DIET RENEE CLEARED FOR DISCHARGE Plan discussed with: Patient My Orders My Orders Orders - JEF REGAN MD Procedure Category Date Status Time Clear Liq Diet DIET 10/07/24 Transmitted Dinner JEF REGAN MD Oct 08, 2024 12:16
[2024-10-08 13:00] VITALS: BP 160/63; PULSE 56; RESP 16; TEMP 98.1; O2SAT 98
--- NOTE | 2024-10-08 13:55 | DVHDS2 ---
Discharge Summary Date of Admission Oct 06, 2024 at 14:19 Date of Discharge: Oct 08, 2024 Labs/Diagnostic Data: Laboratory Results Test 10/08/24 06:09 10/06/24 09:56 10/06/24 09:22 Sodium Level 137 mmol/L (136-145) Potassium Level 4.1 mmol/L (3.5-5.1) Chloride Level 105 mmol/L (98-107) Carbon Dioxide Level 25 mmol/L (20-31) Anion Gap 7 (5-15) Blood Urea Nitrogen 11 mg/dL (9-23) Creatinine 0.76 mg/dL (0.550-1.02) Glomerular Filtration Rate Calc 98 mL/min (>90) BUN/Creatinine Ratio 14.5 (10.0-20.0) Serum Glucose 85 mg/dL (74-106) Calcium Level 9.5 mg/dL (8.7-10.4) Phosphorus Level 3.6 mg/dL (2.4-5.1) Magnesium Level 2.0 mg/dL (1.6-2.6) White Blood Count 9.7 10^3/uL (4.4-10.8) Red Blood Count 4.75 10^6/uL (4.0-5.20) Hemoglobin 11.3 g/dL (12.2-16.2) Hematocrit 35.5 % (36.0-46.0) Mean Corpuscular Volume 74.7 fL (80.0-100.0) Mean Corpuscular Hemoglobin 23.7 pg (28.0-32.0) Mean Corpuscular Hemoglobin Concent 31.8 g/dL (32.0-36.0) Red Cell Distribution Width 18.7 % (11.8-14.3) Platelet Count 549 10^3/uL (140-450) Mean Platelet Volume 7.5 fL (6.9-10.8) Neutrophils (%) (Auto) 70.1 % (37.0-80.0) Lymphocytes (%) (Auto) 20.7 % (10.0-50.0) Monocytes (%) (Auto) 5.2 % (0.0-12.0) Eosinophils (%) (Auto) 3.0 % (0.0-7.0) Basophils (%) (Auto) 1.0 % (0.0-2.0) Neutrophils # (Auto) 6.8 10 ^3/uL (1.6-8.6) Lymphocytes # (Auto) 2.0 10 ^3/uL (0.4-5.4) Monocytes # (Auto) 0.5 10 ^3/uL (0-1.3) Eosinophils # (Auto) 0.3 10 ^3/uL (0-0.8) Basophils # (Auto) 0.1 10 ^3/uL (0-0.2) Nucleated Red Blood Cells 0.1 % Total Bilirubin 0.4 mg/dL (0.2-1.0) Aspartate Amino Transferase (AST) 13 U/L (13-40) Alanine Aminotransferase (ALT) < 9 U/L (7-40) Alkaline Phosphatase 48 U/L (46-116) Total Protein 7.9 g/dL (5.7-8.2) Albumin 4.9 g/dL (3.2-4.8) Lipase 50 U/L (12-53) Thyroid Stimulating Hormone (TSH) 1.51 uIU/mL (0.55-4.78) Urine Color Colorless (Yellow) Urine Clarity Clear (Clear) Urine pH 6.5 (5.0-9.0) Urine Specific [place] 1.005 (1.001-1.035) Urine Protein Negative (Negative) Urine Ketones Negative (Negative) Urine Blood Negative /uL (Negative) Urine Nitrite Negative (Negative) Urine Bilirubin Negative (Negative) Urine Urobilinogen Normal mg/dL (Negative) Urine Leukocyte Esterase Negative /uL (Negative) Urine RBC <1 /hpf (0 - 4) Urine Microscopic WBC < 1 /HPF (0-5) Urine Squamous Epithelial Cells Few /hpf (<5) Urine Bacteria None seen /hpf (None Seen) Urine Glucose Normal mg/dL (Normal) Urine Test Negative (Negative) Other Laboratory Tests 10/08/24 06:09 10/06/24 09:56 Brief Hx & Hospital Course: 44-year-old female with a known history of anxiety disorder, hypertension initially presented to the hospital with the abdominal pain found to have partial small-bowel obstruction. Patient underwent CT abdomen and pelvis which shows evidence of ileus versus partial small-bowel obstruction. Patient underwent small bowel series with Gastrografin which came back normal. Patient is currently tolerating diet. Patient is cleared by General surgery to be discharged. Patient did not not want to wait for my discharge orders as she left AMA. Condition at Discharge: Undetermined Final Diagnosis/Problems List 44-year-old female with a known history of anxiety disorder, hypertension initially presented to the hospital with the abdominal pain found to have 1. Abdominal pain with the nausea suspect partial small-bowel obstruction 2. Partial small-bowel obstruction 3. Hypertension 4. Anxiety disorder Discharge Disposition: AMA SNF Discharge Will this Physician continue t: No Discharge Statement: "Patient was advised to return to the ER or call 911 if any headaches, dizziness, shortness of breath, chest pain, abdominal pain, bleeding, fevers, or worsening of medical condition. Patient was counseled about treatment plan, medications, possible side effects, patientverbalized understanding. All questions were answered to the best of my ability. This discharge took greater then 30 minutes in planning, reviewing documentation, counseling the patient, and discussing with other team members." ASSESSMENT ASSESSMENT Assessment Date of Service: Oct 08, 2024 Billing Provider: PERLA HI MD Common Visit Codes: [id number]/OBS DISCH DAY <30MIN PERLA HI MD Oct 08, 2024 13:55
== END 2024-10-08 13:14 | disposition left against medical advice (07) | DRG 199 ==
LOC: ER 08:18 → EDBD 08:18 → OVERFLOW 14:19 → EAST 16:14
PROVIDERS: ADMIT Internal Medicine; ATTEND Internal Medicine
PROC: 0D9670Z Drainage of Stomach with Drainage Device, Via Natural or Artificial Opening (ICD-10-PCS; principal; 2024-10-06)
DX: I16.0 Hypertensive urgency (principal); K56.690 Other partial intestinal obstruction; F41.9 Anxiety disorder, unspecified; I10 Essential (primary) hypertension; K80.20 Calculus of gallbladder without cholecystitis without obstruction; Z53.29 Procedure and treatment not carried out because of patient's decision for other reasons
CPT/HCPCS: 36415; 74176; 74250; 80048; 80053; 81001; 81025; 83690; 83735; 84100; 84443; 85025; 93005; 96374; 96375; G0378; J2405